=== PATIENT | male | born 1960 | race Caucasian/White ===

== ENCOUNTER 2020-02-01 09:03 | Observation (INO) | payer OTHER ==
[2020-01-29 11:58] LABS: BASOPHILS # (AUTO) 0.04 x10^3/uL (0-0.1); BASOPHILS % (AUTO) 1 % (0-1); EOSINOPHILS # (AUTO) 0.03 x10^3/uL (0-0.4); EOSINOPHILS % (AUTO) 1 % (1-7); LYMPHOCYTES # (AUTO) 1.79 x10^3/uL (1-3.4); LYMPHOCYTES % (AUTO) 30 % (22-44); MD NO; MEAN CORPUSCULAR HEMOGLOBIN 29.1 pg (27.5-34.5); MEAN CORPUSCULAR HGB CONC 32.7 g/dL (33.2-36.2); MEAN PLATELET VOLUME 8.7 fL (7.4-10.4); MONOCYTES # (AUTO) 0.47 x10^3/uL (0.2-0.8); MONOCYTES % (AUTO) 8 % (2-9); NEUTROPHILS # (AUTO) 3.56 x10^3/uL (1.8-6.8); NEUTROPHILS % (AUTO) 61 % (42-75); PLATELET COUNT 235 x10^3/uL (130-400); RED BLOOD COUNT 5.28 x10^6/uL (4.38-5.82); RED CELL DISTRIBUTION WIDTH 14.3 % (9.4-14.8)
[2020-01-29 12:07] LABS: INTERNATIONAL NORMALIZED RATIO 0.97 (0.93-1.1)
[2020-01-29 12:09] LABS: CHLORIDE 109 mmol/L (98-107)
[2020-01-29 12:39] LABS: ALANINE AMINOTRANSFERASE 30 U/L (12-78); ALBUMIN 3.9 g/dL (3.4-5.0); ALKALINE PHOSPHATASE 92 U/L (45-117); ANION GAP 4 mmol/L (5-15); BILIRUBIN,TOTAL 0.4 mg/dL (0.2-1.0); CALCIUM 10.1 mg/dL (8.5-10.1); CREATININE 1.16 mg/dL (0.7-1.3); TOTAL PROTEIN 7.7 g/dL (6.4-8.2)
[~2020-02-01] VITALS: Ht 180.3 cm; Wt 113.0 kg
[~2020-02-01 09:03] MED LIST: ATEN50TA41 PO; CHOL10003 PO; EPINEPHRINE 1 MG/ML, 1ML ONE; GOLD1CAP5 PO; KETOROLAC 60 MG/2 ML ONE; LISI40TA PO; MULT-751 PO; MV-M1TAB25 PO; OMEP-110 PO; ROPIvacaine/PF 0.2%, 20 ML ONE; SODIUM CHLORIDE 0.9% 50 ML ONE; TRANEXAMIC ACID 100 MG/ML, 10ML ONE; TURMERIC CURCUMIN PO
[2020-02-01] MEDS ORDERED: CHLORHEXIDINE 15 ML UDC MM STA (09:25)
[2020-02-01] MEDS ORDERED: LACTATED RINGERS 1,000 ML IV SCH (09:42)
[2020-02-01] MEDS ORDERED: GABAPENTIN 300 MG CAPSULE PO ONE (10:00)
[2020-02-01] MEDS ORDERED: ACETAMINOPHEN 500 MG TABLET PO ONE (10:00)
[2020-02-01] MEDS ORDERED: MIDAZOLAM 1 MG/ML, 2ML ONE (10:57)
[2020-02-01] MEDS ORDERED: FENTANYL PF 250 MCG/5ML ONE ×2 (10:57→11:34)
[2020-02-01] MEDS ORDERED: GLYCOPYRROLATE 0.2MG/1ML, 5ML ONE (10:58)
[2020-02-01] MEDS ORDERED: ROCURONIUM 10MG/ML,5ML ONE (10:58)
[2020-02-01] MEDS ORDERED: CEFAZOLIN 1,000 MG ONE (10:58)
[2020-02-01] MEDS ORDERED: PROPOFOL 10 MG/ML, 20ML ONE (10:58)
[2020-02-01] MEDS ORDERED: NEOSTIGMINE 1 MG/ML, 10ML ONE (10:58)
[2020-02-01] MEDS ORDERED: hydrALAzine 20 MG/ML, 1ML IV PRN (11:30)
[2020-02-01] MEDS ORDERED: MEPERIDINE/PF 25MG/0.5ML IVPush PRN (11:30)
[2020-02-01] MEDS ORDERED: morphine SULFATE 10 MG/ML, 1ML IVPush PRN (11:30)
[2020-02-01] MEDS ORDERED: ACETAMINOPHEN 325 MG TABLET PO PRN (11:30)
[2020-02-01] MEDS ORDERED: LABETALOL 5MG/ML, 20ML IV PRN (11:30)
[2020-02-01] MEDS ORDERED: HYDROmorphone 1 MG/ML, 1ML INJ IVPush PRN ×2 (11:30→13:00)
[2020-02-01] MEDS ORDERED: OXYcodone 5 MG/5 ML ORAL.SOL UDC PO PRN (11:30)
[2020-02-01] MEDS ORDERED: ONDANSETRON 2MG/ML, 2ML IVPush PRN ×2 (11:30→13:00)
[2020-02-01] MEDS ORDERED: POTASSIUM CHLORIDE 20 MEQ in D5%-0.45% NACL 1,000 ML IV SCH (12:59)
[2020-02-01] MEDS ORDERED: PSYLLIUM PACKET PO PRN (13:00)
[2020-02-01] MEDS ORDERED: OXYcodone IR 5MG TABLET PO PRN (13:00)
[2020-02-01] MEDS: KETOROLAC 30 MG/1 ML IV SCH ×2 (13:00→14:19)
[2020-02-01] MEDS ORDERED: POLYETHYLENE GLYCOL 17 GM PACKET PO PRN (13:00)
[2020-02-01] MEDS ORDERED: ONDANSETRON 4 MG TABLET PO PRN (13:00)
[2020-02-01] MEDS ORDERED: METOCLOPRAMIDE 5 MG/ML, 2ML IVPush PRN (13:00)
[2020-02-01] MEDS ORDERED: TRANEXAMIC ACID 1,000 MG in SODIUM CHLORIDE 0.9% 100 ML IVPB ONE (13:00)
[2020-02-01] MEDS ORDERED: SENNA/DOCUSATE TABLET PO PRN (13:00)
[2020-02-01] MEDS ORDERED: MAGNESIUM HYDROXIDE 8%, 30ML UDC PO PRN (13:00)
[2020-02-01] MEDS ORDERED: ACETAMINOPHEN 650 MG/20.3 ML UDC PO PRN (13:00)
[2020-02-01] MEDS ORDERED: DEXAMETHASONE 4 MG/ML, 1ML IVPush SCH (13:00)
[2020-02-01] MEDS ORDERED: DIPHENHYDRAMINE 50 MG/ML, 1ML IVPush PRN (13:00)
[2020-02-01] MEDS ORDERED: ALUMINUM/MAG/SIMETHICONE 30 ML UDC PO PRN (13:00)
[2020-02-01] MEDS ORDERED: DIPHENHYDRAMINE 50 MG CAPSULE PO PRN (13:00)
[2020-02-01] MEDS ORDERED: FENTANYL PF 100 MCG/2ML ONE (13:29)
[2020-02-01] MEDS ORDERED: OXYcodone 5 MG/5 ML ORAL.SOL UDC ONE (13:30)
[2020-02-01] MEDS: FENTANYL PF 100 MCG/2ML IV PRN ×2 (13:31→13:38)
[2020-02-01] MEDS ORDERED: KETOROLAC 30 MG/1 ML ONE (13:35)
[2020-02-01 14:55] VITALS: BP 159/91
[2020-02-01 17:50] VITALS: BP 136/76
[2020-02-01] MEDS ORDERED: CEFAZOLIN PMX 1GM/50ML 50 ML IVPB SCH (19:00)
[2020-02-01] MEDS ORDERED: ASPIRIN 81 MG TABLET EC PO SCH (21:00)
[2020-02-01] MEDS ORDERED: DOCUSATE 100 MG CAPSULE PO SCH (21:00)
[2020-02-02] MEDS ORDERED: OMEPRAZOLE 20 MG CAPSULE.DR PO SCH (06:00)
[2020-02-02] MEDS ORDERED: ATENOLOL 50 MG TABLET PO SCH (06:00)
[2020-02-02] MEDS ORDERED: TAMSULOSIN 0.4 MG CAP.ER.24H PO SCH (09:00)
[2020-02-02] MEDS ORDERED: LISINOPRIL 40 MG TABLET PO SCH (09:00)
== END 2020-02-01 17:51 | disposition home or self-care (01) ==
LOC: OUT 09:03 → 4NE 12:59 → OUT 12:59 → 4NE 14:12
PROVIDERS: ADMIT Orthopaedic Surgery; ATTEND Orthopaedic Surgery
DX: M17.32 Unilateral post-traumatic osteoarthritis, left knee (principal); Z20.828 Contact with and (suspected) exposure to other viral communicable diseases; M19.90 Unspecified osteoarthritis, unspecified site; J45.909 Unspecified asthma, uncomplicated; G47.30 Sleep apnea, unspecified; I10 Essential (primary) hypertension; Z79.899 Other long term (current) drug therapy
CPT/HCPCS: 27447; 36415; 73560; 80053; 83036; 85025; 85610; 85730; 87081; 87635; 87806; 93005; 97161; C1713; C1776; G0378; J0171; J0690; J1885; J2250; J2704; J2710; J2795; J3010; J7120; G0475